=== PATIENT | female | born 1970 | race Caucasian/White ===

== ENCOUNTER 2016-04-13 07:40 | Day surgery (SDC) | payer MEDICAID, MEDICARE ==
[2016-04-13] VITALS (11 sets, daily range): BP systolic 104–124; BP diastolic 57–74; PULSE 58–73; RESP 7–15; O2SAT 95–100
[~2016-04-13] VITALS: Ht 168.9 cm; Wt 82.6 kg
--- NOTE | 2016-04-13 07:26 | PCM.HPANE ---
Patient Data Surgeon Admitting Provider: Attending Provider:Maryuri Bucio MD Primary Care Physician:Rajeev Lau MD Other Provider:Meghan Conteingham Anesthesia Reason for Visit Abnormal Uterine Bleeding Ht/WT & BMI Height (Feet): 5 Height (Inches): 6.5 Weight (Kilograms): 78.925 Body Mass Index 27.00 Allergies Coded Allergies: naproxen (Verified Allergy, Severe, RESPIRATORY DIFFICULTY, 04/08/16) diflunisal (Verified Adverse Reaction, Severe, N&V, 04/08/16) hydrocodone (Verified Adverse Reaction, Severe, ITCHING, 04/08/16) NSAIDS (Non-Steroidal Anti-Inflamma (Verified Adverse Reaction, Unknown, ) R/T HX GASTRIC BYPASS Past Anesthesia History Anesthesia History: Denies:: Anesthesia Reactions, Malignant Hyperthermia Diabetes History Hx Diabetes?: No MRSA MRSA: No Medications Reported Medications Trazodone 50 Mg Ncrjst55 Mg PO HS #90 04/13/16 Buprenorphine/Naloxone 8-2 mg 1 Each Tab.subl4 Mg PO 5XD #64 04/13/16 Cholecalciferol (Vitamin D3) (Vitamin D)50,000 Unit Zlntezp56,000 Unit PO WEEKLY 04/08/16 Beclomethasone Dipropionate (Qvar)8.7 Gm Aer.w.adap1 Puff INHALATION BID #8.7 GM 04/08/16 Quetiapine Fumarate 100 Mg Tqqarz013 Mg PO HS Ref 0 04/08/16 Ondansetron (Zofran)4 Mg Tablet4 Mg PO TID PRN For Nausea 04/08/16 Pregabalin (Lyrica)50 Mg Gpqzlxo77 Mg PO DAILY 30 Days Ref 0 04/08/16 Lidocaine (Lidocream)5 Gm Cream..g.5 Gm TP QID PRN PRN 04/08/16 Ferrous Sulfate (Iron)325 Mg Capsule.er325 Mg PO TID 01/14/16 oxyCODONE-Acetaminophen 10-325 mg 1 Each Tablet1 Tablet PO Q4H PRN For Pain Ref 0 10/09/15 Gabapentin 300 Mg Bilwdys577 Mg PO TID Ref 0 10/02/15 Albuterol Sulfate (Ventolin HFA Inhaler)200 Puff/18 Gm Inhaler1 Puff INH Q4 PRN For Wheezing #1 INHALER Ref 0 07/14/15 Valacyclovir 1,000 Mg Tablet1,000 Mg PO DAILY PRN PRN 07/14/15 Duloxetine 60 Mg Capsule.dr60 Mg PO DAILY Ref 0 07/14/15 Acetaminophen 500 Mg Gyxyxh993 Mg PO Q6H PRN For Pain 07/14/15 Discontinued Reported Medications Estrogens Conjugated (Premarin)1.25 Mg Tab2.5 Mg PO BID 30 Days 04/08/16 Medroxyprogesterone 10 Mg Wmbtxv78 Mg PO DAILY 04/08/16 Medroxyprogesterone Acetate (Depo-Provera)150 Mg/1 Ml Hoyebbd255 Mg IM q 3 months 04/08/16 Buprenorphine 2 Mg Tab.subl2 Mg SL DAILY PRN TID Ref 0 01/14/16 Cholecalciferol (Vitamin D3) (Vitamin D3)3,000 Unit Tablet3,000 Unit PO WEEKLY 01/14/16 Trazodone 50 Mg Oejfjh56-022 Mg PO HS Ref 0 10/02/15 Discontinued Scripts Carisoprodol 350 Mg Txtvxk980 Mg PO TID PRN For Spasm #30 TAB Prov:Santosh Joaquin MD 10/10/15 History History of ENT Problems?: Yes Other HEENT Pertinent History: S/P TONSILLECTOMY Hx of Heart Problems?: Yes Cardiovascular History: Denies:: Congestive Heart Failure Heart Murmur Hypertension Other Cardiac History: CURRENT ANEMIA R/T TO UTERINE BLEEDING Hx of Respiratory Problem?: Yes Respiratory History: Positive for:: Asthma Use of Inhalers / NEBS Denies:: Tuberculosis Use of C-PAP Machine Hx Neurologic Problems?: Yes Neurological History: Positive for:: Dizziness (R/T ANEMIA) Headaches Other Neurological Pertinent: HSV RLS Hx of GI Problems?: Yes Gastrointestinal History: Positive for:: Gastroesphageal Reflux Other GI Pertinent History: S.O GASTRIC BYPASS,PANNICULECTOMY W/ VENTRAL HERNIA RPR 250# WEIGHT LOSS SINCE GASTRIC BYPASS Hx of Problems?: No Female Hx: Denies:: Currently (DEPO INJECTIONS S/P BTL) Endometriosis (S/P ENDOMETRIAL BX) Skin History: Denies:: History Skin Disorders? Pressure Ulcers Hx Musculoskeletal Problems?: Yes Musculoskeletal History: Positive for:: Musculoskeletal Trauma (S/P LT SHOULDER RPR,LT ANKLE RPR) Osteoarthritis Denies:: Back Injury (C/OF CHRONIC BACK PAIN) Hx of Psycho/Social Problems?: Yes Psycho Social History: Positive for:: Anxiety Hx Depression Denies:: Suicide Attempt Hx Surgeries?: Yes (LT SHOULDER RPR,LT ANKLE RR,BTL,GASTRIC BYPASS,TONSILS, ENDOMETRIAL BX) Hx Any Other Health Problems?: Yes Other History: Denies:: Cancer Endocrine Disease Hospitalization Thyroid Disease History Blood Transfusions: Positive for:: Accept Blood Products? Blood Transfusions Denies:: Blood Transfuse Reaction Hx Diabetes: No Hx Alcohol Use: Yes (OCC)Hx Substance Use: Yes ([facility]-HX OF SUBOXONE FOR OPIOID DEPENDENCE) Smoking Status: Never Smoker Have You Smoked inLast 12 mo: No Stop/Bang S-Snoring: Do You Snore Loudly: No T-Tired: feel tired, fatigued: Yes O-Obsered: Observed not breath: No P-Blood Pressure: treated: No B- Body Mass Index > 35 kg/m2: No A- Age over 50: No N- Neck Large Circumference: No G- Gender Male: No RAD Total Score: 1 Risk Assessment Category Category 1A: Patient has history of documented sleep apnea, and HAS NOT received any narcotic, sedative or anesthesia administration during this stay. Category 1B: Patient has history of documented sleep apnea, and HAS received any narcotic , sedative or anesthesia administration during this stay Category 2: Patient has SUSPECTED Obstructive Sleep Apnea, and HAS received any narcotic , sedative or anesthesia administration during this stay. Category 3: Patient has SUSPECTED Obstructive Sleep Apnea and HAS NOT received narcotic, sedative or anesthesia administration during this stay. Category 4: Outpatient in Procedural Areas with known sleep apnea or who screen positive for High Risk via the STOP/BANG questionnaire. Exam Exam General Appearance: Alert, Oriented X3, Cooperative HEENT/AIRWAY: MP 2, Neck Movement (from), Mouth Opening (wnl) Lungs: Clear to Auscultation, Normal Air Movement (from) Heart: Exam Unremarkable Plan Impression Patient chart reviewed, patient interviewed and anesthestic plan with risks, benefits, and alternatives discussed, and informed consent obtained. NPO Status: 10/08/15 ASA Physical Status: ASA2 Mod Systemic Disease Anesthetic Plan: GA Bene/Risks/Altern/Consents: Yes HP Complete Prior to Induction: Yes Gustavo Moreau MD Apr 13, 2016 07:26
[~2016-04-13 07:40] MED LIST: ACET-171 PO; ALBU18HF INH; BECL8.7A6 INHALATION; CHOL500050 PO; DULO60CA61 PO; FERR325C PO; GABA-502 PO; LIDO5CRE5 TP; MEDR10TA9 PO; MEDR150D9 IM; ONDA4TAB6 PO; OXYC-466 PO; PREG50CA PO; PREM125 PO; QUET100T69 PO; VALA100026 PO
[2016-04-13] MEDS ORDERED: Propofol 10,000 mCg/mL 20 mL Inj ONE (07:41)
[2016-04-13] MEDS ORDERED: fentaNYL-PF 50 mCg/mL 2 mL Inj ONE (07:41)
[2016-04-13] MEDS ORDERED: HYDROmorphone 2 mg/mL Inj ONE (07:41)
[2016-04-13] MEDS ORDERED: Ondansetron 2 mg/mL 2 mL Inj ONE (07:41)
[2016-04-13] MEDS: Lactated Ringer's 1,000 ML IV SCH ×2 (07:53→09:09)
[2016-04-13] MEDS ORDERED: Acetaminophen IV 1,000 MG in IV Premix 1 EACH IV ONE (08:10)
[2016-04-13] MEDS ORDERED: TRAZ-115 PO (08:12)
[2016-04-13] MEDS ORDERED: BUPR1TAB36 PO (08:12)
[2016-04-13] MEDS ORDERED: Lactated Ringer's 500 ML IV PRN (09:36)
[2016-04-13] MEDS ORDERED: Lactated Ringer's 1,000 ML IV SCH (09:36)
[2016-04-13] MEDS ORDERED: Labetalol 5 mg/mL 4 mL Inj IV PRN (09:40)
[2016-04-13] MEDS ORDERED: Dexamethasone 4 mg/mL Inj IVPUSH PRN (09:40)
[2016-04-13] MEDS ORDERED: HYDROmorphone 1 mg/mL Inj IVPUSH PRN (09:40)
[2016-04-13] MEDS ORDERED: hydrALAZINE 20 mg/mL Inj IVPUSH PRN (09:40)
[2016-04-13] MEDS ORDERED: Phenylephrine 10,000 mCg/mL Inj IVPUSH PRN (09:40)
[2016-04-13] MEDS ORDERED: EPHEDrine Sulfate 50 mg/mL Inj IVPUSH PRN (09:40)
[2016-04-13] MEDS ORDERED: fentaNYL-PF 50 mCg/mL 2 mL Inj IVPUSH PRN (09:40)
[2016-04-13] MEDS ORDERED: Ondansetron 2 mg/mL 2 mL Inj IVPUSH PRN ×2 (09:40→10:10)
[2016-04-13] MEDS ORDERED: EPHEDrine Sulfate 50 mg/mL Inj IM PRN (09:40)
[2016-04-13] MEDS ORDERED: Atropine 0.4 mg/mL Inj IVPUSH PRN (09:40)
[2016-04-13] MEDS ORDERED: hydrOXYzine Inj 25 MG/1 mL SDV IM PRN (09:40)
--- NOTE | 2016-04-13 10:07 | PCM.SURGOP ---
Surgical Operative Report Date of Service: Apr 13, 2016 Pre Operative Diagnosis 1. Abnormal uterine bleeding 2. Anemia Post Operative Diagnosis 1. Abnormal uterine bleeding 2. Anemia Procedure: 1. NovaSure endometrial ablation 2. Diagnostic hysteroscopy with fractional dilation and curettage. Surgeon and An Employee Sponsor Or Advocate And: Surgeon: Maryuri Bucio MD Resident: John Sanchez DO Indication for Procedure 46-year-old 3 para 3 with a history of abnormal uterine bleeding and anemia. She has had a previous tubal ligation. Findings: Hysteroscopic findings showing a normal-appearing endometrial cavity. There was no evidence of any endometrial polyps were submucosal fibroids. The cornual regions were easily identified. Post ablation the endometrial cavity appeared to be well ablated. (see images) Procedure Details Patient was taken to the operating room where her general anesthesia was obtained without difficulty. She was placed in a lithotomy position in the [facility] and prepared and draped in normal sterile fashion. An appropriate intraoperative timeout was performed. A bivalve speculum was inserted into the patient's vagina and the cervix was identified and grasped with a single-tooth tenaculum. The cervix was then dilated using Hegar cervical dilators. The Myosure hysteroscope was then inserted and hysteroscopy was performed with the above-noted findings. The hysteroscope was then removed and endocervical and endometrial curettings were obtained. The uterine cavity was measured at 6 cm. The NovaSure device was then inserted and the cavity width was noted to be 4.6 cm. These measurements were input into the NovaSure generator. The NovaSure device was then activated and cavity assessment and vacuum test passed. The NovaSure device ran its cycle without alarm for 57 seconds with a power of 152 W. The NovaSure device was then removed. The hysteroscope was then reinserted with the above-noted findings. All instruments were then removed from the patient's vagina and good hemostasis was noted. All lap, instrument and needle counts were correct times two at the end of the procedure and patient was taken to the recovery room awake and in good condition. Complications There were no periprocedural complications identified. Surgical Specimen Removed: Yes Specimen sent to Pathology: Yes Surgical Specimen description: 1. Endocervical curettings 2. Endometrial curettings Anesthetic Plan: GA Grafts, Implants: None Output, Estimated Blood Loss: 0 Blood Administration during mcbride: No Catheters: None Post Operative Plan Discharge home when patient is awake and stable. Maryuri Bucio MD Apr 13, 2016 10:07
--- NOTE | 2016-04-13 10:11 | PCM.DIGYN ---
Surgical Discharge Instruction Dates of Hospitalization Date of Hospital Admission 04/13/2016 Providers Admitting Physician: Primary Care Physician: Rajeev Lau MD Attending Physician: Maryuri Bucio MD Diagnosis at Time of Discharge Diagnosis at time of discharge Abnormal uterine bleeding Post-operative diagnosis 1. Abnormal uterine bleeding 2. Anemia Problems: Diet Discharge Diet: No restrictions Activity Discharge Activity-General: No restrictions, Try not to overdue, Be up and about Dressing and Incisional Care Hygiene: May shower, NO bathtub, hot tub or whirlpool (for 2 weeks or until vaginal bleeding and discharge resolved) Follow Up Plan Follow-up appointment: Weeks Call your provider for: Fever, Chills, Vomitting, Heavy vaginal bleeding, Increasing pain Additional Information You may expect some vaginal discharge and bleeding due to the endometrial ablation. Maryuri Bucio MD Apr 13, 2016 10:11
--- NOTE | 2016-04-13 10:14 | PCM.ANEP1 ---
Post Anesthesia Phase 1 PACU Phase 1 Assessment Date of Service: Apr 13, 2016 Vital Signs Vital Signs Date Time Temp Pulse Resp B/P Pulse Ox O2 Delivery O2 Flow Rate FiO2 04/13/16 10:10 66 8 115/70 96 Room Air 04/13/16 10:05 72 10 114/71 95 Room Air 04/13/16 10:01 36.9 73 7 124/73 97 Room Air 04/13/16 08:14 37.2 63 15 117/74 100 Room Air Anesthetic Administered: GA Level of Alertness: Awake, talking FUENTES's with Equal Strength: Yes Pain: No Oxygen Delivery: Room Air Lungs: Normal Air Movement (from) Gustavo Moreau MD Apr 13, 2016 10:14
--- NOTE | 2016-04-13 11:15 | PCM.ANEP2 ---
Post Anesthesia Evaluation ASA/CMS Post Anesthesia VS in Patient's Normal Range?: Yes Resp Stable; Airway Patent?: Yes CV Function & Hydration Stable: Yes Mental Status Recovered?: Yes Pain control Satisfactory?: Yes N/V Control Satisfactory?: Yes Gustavo Moreau MD Apr 13, 2016 11:15
--- NOTE | 2016-04-14 14:48 | PATH ---
SURGICAL PATHOLOGY Attending Physician:Maryuri Bucio, CASE STATUS: Signed Out PATIENT NAME: SYED ARANA PID: [id number] : 1970 DATE COLLECTED:04/13/2016 16:40 SPECIMEN: 1: Endocervix, Curettage 2: Endometrium, Curettage CLINICAL HISTORY: A: ENDOCERVIX CURETTAGE B: ENDOMETRIAL CURETTAGE FINAL DIAGNOSIS: 1.ENDOCERVICAL CURETTAGE: FRAGMENTS OF ENDOCERVICAL EPITHELIUM, NEGATIVE FOR ATYPIA. 2.ENDOMETRIAL CURETTAGE: MULTIPLE FRAGMENTS CONSISTENT WITH BENIGN ENDOMETRIAL POLYP, NEGATIVE FOR ATYPIA. FRAGMENTS OF PROLIFERATIVE ENDOMETRIUM WITH CHANGES OF GLANDULAR AND STROMAL BREAKDOWN, NEGATIVE FOR ATYPIA. ICD10 CODE N92.0 GROSS DESCRIPTION: The specimens are received in formalin, labeled with the patient's name, and sublabeled as the following: (1) endocervix; (2) endometrial. (1) The specimen consists of turbid colorless hemorrhagic gelatinous tissue (2.5 x 1.7 x 0.5 cm). Section code: (1A) tissue. Specimen entirely submitted. (2) The specimen consists of turbid colorless gelatinous and reza-white hemorrhagic soft tissue (2.8 x 2.0 x 0.5 cm in aggregate). Section code: (2A) tissue. Specimen entirely submitted. 04/13/16 MICRO DESCRIPTION: See diagnosis. ICD-9 CODES: CPT CODES: 1: 86088 2: 62421 Electronically Signed Out Israel Angelo MD [facility] [address], [place] [address] Technical component performed at [facility], [facility] [address], [place], [address]
== END 2016-04-13 23:59 | disposition home or self-care (01) ==
LOC: SAS 07:40
PROVIDERS: ATTEND Obstetrics & Gynecology
DX: N84.0 Polyp of corpus uteri (principal); N93.9 Abnormal uterine and vaginal bleeding, unspecified; D64.9 Anemia, unspecified; J45.909 Unspecified asthma, uncomplicated; Z98.84 Bariatric surgery status
CPT/HCPCS: 58563; J0131; J1170; J2175; J2250; J2405; J7120

== ENCOUNTER 2016-06-15 14:32 | Emergency (ER) | payer MEDICAID, MEDICARE ==
[~2016-06-15] VITALS: Ht 168.9 cm; Wt 82.7 kg
[~2016-06-15 14:32] MED LIST changes: +BUPR1TAB36 PO; -MEDR10TA9 PO; -MEDR150D9 IM; -PREM125 PO; +TRAZ-115 PO
[2016-06-15 14:38] VITALS: BP 114/82; PULSE 78; RESP 15; O2SAT 100
--- NOTE | 2016-06-15 15:54 | ED.REPORT ---
HPI-Extremity Problem Lower Date of Service Jun 15, 2016 ED Provider: Dr. Gerson Hicks MD A 46 year old female with a history of chronic knee pain and osteoarthritis presents to the ED complaining of left knee pain that began a few days ago. Patient reports decreased appetite and decreased activity because of the pain. She rates her worst pain as a 10/10 and the pain has been constant since onset. Patient has been taking Tylenol arthritis with no relief. She denies any fever, chills or any other medical complaints at this time. Nursing Notes Stated Complaint: LEG PAIN Chief Complaint: Extremity Trauma Nursing Notes Reviewed: Yes Allergies: Coded Allergies: naproxen (Verified Allergy, Severe, RESPIRATORY DIFFICULTY, 06/15/16) diflunisal (Verified Adverse Reaction, Severe, N&V, 06/15/16) hydrocodone (Verified Adverse Reaction, Severe, ITCHING, 06/15/16) NSAIDS (Non-Steroidal Anti-Inflamma (Verified Adverse Reaction, Unknown, ) R/T HX GASTRIC BYPASS Scheduled Beclomethasone Dipropionate (Qvar) 8.7 Gm Aer.w.adap 1 PUFF INHALATION BID Buprenorphine/Naloxone 8-2 mg (Buprenorphine/Naloxone 8-2 mg) 1 Each Tab.subl 4 MG PO 5XD Cholecalciferol (Vitamin D3) (Vitamin D) 50,000 Unit Capsule 50,000 UNIT PO WEEKLY Duloxetine (Duloxetine) 60 Mg Capsule.dr 60 MG PO DAILY Ferrous Sulfate (Iron) 325 Mg Capsule.er 325 MG PO TID Gabapentin (Gabapentin) 300 Mg Capsule 900 MG PO TID Pregabalin (Lyrica) 50 Mg Capsule 50 MG PO DAILY Quetiapine Fumarate (Quetiapine Fumarate) 100 Mg Tablet 100 MG PO HS Trazodone (Trazodone) 50 Mg Tablet 50 MG PO HS Scheduled PRN Acetaminophen (Acetaminophen) 500 Mg Tablet 500 MG PO Q6H PRN PRN For Pain Albuterol Sulfate (Ventolin HFA Inhaler) 200 Puff/18 Gm Inhaler 1 PUFF INH Q4 PRN PRN For Wheezing Lidocaine (Lidocream) 5 Gm Cream..g. 5 GM TP QID PRN PRN PRN Ondansetron (Zofran) 4 Mg Tablet 4 MG PO TID PRN PRN For Nausea Valacyclovir (Valacyclovir) 1,000 Mg Tablet 1,000 MG PO DAILY PRN PRN PRN oxyCODONE-Acetaminophen 10-325 mg (oxyCODONE-Acetaminophen 10-325 mg) 1 Each Tablet 1 TABLET PO Q4H PRN PRN For Pain General Time Seen by MD: 15:54 Chief Complaint Knee injury left Hx Obtained From: Patient Arrived By: Walk-in Onset Occurred: 3 days ago Symptom Duration: Since onset Location: : Knee left Quality: Painful Severity: Current: Mild Severity: Maximum: Mild Pertinent Negative: Pt denies other symptoms Recent Healthcare: No recent doctor visit, No recent hospitalization Past Medical History Past Medical History Chronic back pain Chronic knee pain - osteoarthritis Gastric bypass - lost 240 lbs GERD Reports: Asthma Past Surgical History Gastric bypass surgery L ankle surgery L shoulder surgery Reports: Tonsillectomy Smoking History Never Smoker Social History Previous addiction to opiate pain medications. Alcohol Use: "Social" Drug Use: THC Other Social History: , Local resident Ambulatory Status Independent Review of Systems Constitutional: Denies: Chills, Fever Musculoskeletal: Reports: Joint pain (Left Knee Pain) Neurologic: Denies: Change LOC Complete sys rev & neg: except as marked. Respiratory: Denies: Shortness of breath Cardiovascular: Denies: Chest pain GI: Denies: Abdominal pain, Nausea, Vomiting Physical Exam Initial Vital Signs Vital Signs (First) Date Time Temp Pulse Resp B/P Pulse Ox O2 Delivery O2 Flow Rate FiO2 06/15/16 14:38 36.3 78 15 114/82 100 Room Air Initial VS: Reviewed Head / Eyes: Atraumatic, Normocephalic, PERRL Neck: Supple, Non-tender, Full range of motion Upper Extremities: Vascular intact, Neuro intact, No swelling, No tenderness Skin: Warm, Dry, No cyanosis Neurologic: Alert, Oriented, Nonfocal Psychiatric: Mood/affect normal, Behavior normal, Normal thought content Lower Extremity / Pelvis / MS: Atraumatic, Neurologic intact, Vascular intact Right Knee: Negative: Erythema present, Swelling present..., Warmth present LOWER EXTREMITIES: Palpable Osteoarthritic change Ankle / Foot: Atraumatic, Inspection NL, Neurologic intact, Vascular intact General/Constitutional: Awake, Alert Respiratory / Chest: Atraumatic, No respiratory distress Cardiovascular: Heart rate NL, Regular rhythm, Heart sounds NL, No murmurs, No rubs, Peripheral circulation NL, Pulses = bilaterally CARDIO: No calf swelling or tenderness Abdomen: Atraumatic, Soft, Non-tender, No distention ABDOMEN: Well healing incision Interpretation & Diagnostics X-Ray Interpretation Xray Interpretation: IMPRESSION: What appears to be a large sequestered anterior intra-articular loose bodies are present, too, measuring up to 2.3 cm in dimension a smaller suspected intra-articular loose body is seen more posteriorly measuring only approximately 8 mm. Severe arthritis of the medial compartment and at the lateral facet of the patellofemoral joint. Dictated by: Kingsley Farris M.D. on 06/15/2016 at 16:03 X-Ray Ordered: Knee left Interpretation / Wet Read by: Interpret - Radiologist Re-Eval/Medical Decision Re-Evaluation/Progress #1: Time of Eval: 17:24 Patient Status: Condition improved Re-Evaluation/Progress Note: Patient is rechecked. She is informed of her X-ray results and diagnosis. All of the patient's questions are adressed. She understands and agrees with the treatment plan to discharge. Re-Evaluation/Progress #2: Time of Eval: 17:30 Re-Evaluation/Progress Note: Patient reports that she would like to leave without referral or discharge instructions. Counseled Regarding: Diagnosis, Need for follow-up, When/why to return to ED Discharge & Departure Departure Notes A 46 year old female with a history of chronic knee pain and osteoarthritis presents to the ED complaining of left knee pain that began a few days ago. Patient reports decreased appetite and decreased activity because of the pain. She rates her worst pain as a 10/10 and the pain has been constant since onset. Patient has been taking Tylenol arthritis with no relief. She denies any fever, chills or any other medical complaints at this time. Here in the emergency department the patient is afebrile with stable vital signs and examination as above. She is neurovascularly intact in the extremity. There is no evidence of effusion, redness, warmth or swelling suggestive of septic arthritis. TONEY report shows that the patient is filled multiple prescriptions for Suboxone, oxycodone and benzodiazepines from multiple providers. She reports that she started taking Tylenol and that she is unable to take nonsteroidal anti- inflammatory drugs due to her history of gastric bypass surgery. I pointed the patient given that she is already received multiple narcotic pain medication prescriptions that I am not comfortable providing narcotic pain medications here in the emergency department. Plain films of the affected knee demonstrated chronic degenerative changes without any acute fracture or dislocation. I offered the patient referral to orthopedic surgery and further nonnarcotic pain management. At this time, the patient stated that she no longer wished to receive treatment at this emergency department. She stood up and eloped from the emergency department prior to receiving discharge paperwork or completing her evaluation. Impression: Primary Impression: Chronic knee pain Laterality: left Qualified Code: M25.562 - Pain in left knee Additional Impressions: Opioid dependence Substance use status: with unspecified opioid-induced disorder Qualified Code : F11.29 - Opioid dependence with unspecified opioid-induced disorder History of elopement from health care facility Disposition: Home Discharge Condition All VS Reviewed: Yes Condition: Stable Additional Instructions: ELOPED PRIOR TO RECEIVING DISCHARGE INSTRUCTIONS Referrals: Rajeev Lau MD (PCP) Gus Tyler Attestation Portions of this note were transcribed by Linn Nevarez. I, Dr. Hicks personally performed the history, physical exam and medical decision-making; I reviewed and confirmed the accuracy of the information in the transcribed note. Signed by: Noman Lovell, 06/15/16 1830. Gerson Hicks MD Jun 15, 2016 15:54 LINN NEVAREZ Jun 15, 2016 17:24
--- NOTE | 2016-06-15 16:07 | DRSVH ---
PROCEDURE: X-RAY RIGHT KNEE, THREE VIEWS ([id number]) INDICATIONS: pain TECHNIQUE: 3 views of the knee were acquired. COMPARISON: [facility], CR, KNEE MIN 4VW (RT), 07/21/2012, 9:38. [facility], CR, KNEE 3V RIG HT, 09/10/2008, 16:34. FINDINGS: Bones: No fractures or dislocations. No suspicious bony lesions. There is near severe medial ken rtment degenerative osteoarthritis at the knee, and also at the lateral facet of the patellofemoral j oint. What appears to be large intra-articular loose bodies can be seen beneath the patella on the l ateral view, and a smaller possible intra-articular loose body is seen posteriorly on the lateral vie w. The larger abnormalities anteriorly measure up to 2.3 cm in dimension. Soft tissues: No joint effusion. No suspicious soft tissue calcifications. IMPRESSION: What appears to be a large sequestered anterior intra-articular loose bodies are present, too, measuring up to 2.3 cm in dimension a smaller suspected intra-articular loose body is seen more posteriorly measuring only approximately 8 mm. Severe arthritis of the medial compartment and at th e lateral facet of the patellofemoral joint. Dictated by: Kingsley Farris M.D. on 06/15/2016 at 16:03 Approved by: Kingsley Farris M.D. on 06/15/2016 at 16:06
== END 2016-06-15 17:56 | disposition home or self-care (01) ==
LOC: SED 14:32
DX: M25.562 Pain in left knee (principal); G89.29 Other chronic pain; F11.29 Opioid dependence with unspecified opioid-induced disorder; K21.9 Gastro-esophageal reflux disease without esophagitis; J45.909 Unspecified asthma, uncomplicated; Z88.5 Allergy status to narcotic agent; Z88.8 Allergy status to other drugs, medicaments and biological substances